=== PATIENT | male | born 1960 | race American Indian/Alaskan Native ===

== ENCOUNTER 2019-11-22 12:11 | Emergency (ER) | payer MEDICAID ==
[2019-11-22] MEDS ORDERED: SODIUM CHLORIDE 0.9% IRR 500 ML BOTTLE IR ONE (12:25)
[2019-11-22] MEDS ORDERED: LIDOCAINE 2%/EPINEPHRINE 1:200,000 VIAL (20 ML) INFILTRATI ONE (12:25)
--- NOTE | 2019-11-22 12:27 | Emergency Department Report ---
Chief Complaint: Wound/Laceration Stated Complaint: CUT LEFT HAND Time Seen by Provider: 11/22/19 12:27 - HPI History of Present Illness: 59 y/o male right hand dominant, utd w td p/w accidental left hand laceration at 1030 am, s/p cutting frozen sausage xr hand wash and irrigate wound laceration repair ok for minor care/fast track MSE screening note: Focused history and physical exam performed. Due to findings the following was ordered: ED Disposition for MSE Condition: Stable
[2019-11-22 12:28] VITALS: BP 166/81
--- NOTE | 2019-11-22 13:18 | XRay Report ---
LEFT HAND 3 VIEWS INDICATION: left hand laceration. COMPARISON: No relevant prior imaging study available. FINDINGS: There is no acute skeletal abnormality. Bandaging is noted along the thenar region. No significant so ft tissue gas or radiodense foreign bodies. IMPRESSION: 1. No acute findings. Signer Name: Ed Bloom MD Signed: 11/22/2019 1:13 PM Workstation Name: [id number]
[2019-11-22] MEDS ORDERED: POVIDONE-IODINE OINTMENT 28.35 GM TP SCH (14:00)
[2019-11-22] MEDS ORDERED: TETANUS,DIPH,PERTUSS(ACELL) VACCINE 0.5 ML SYRINGE IM ONE (15:06)
--- NOTE | 2019-11-22 15:31 | Emergency Department Report ---
ED Laceration HPI - HPI Chief Complaint: Wound/Laceration Stated Complaint: CUT LEFT HAND Time Seen by Provider: 11/22/19 12:27 Occurred When: Today Location: Upper Extremity Severity: mild Tetanus Status: Not up to Date Laceration Symptoms: Yes Pain, No Foreign Body Sensation, No Numbness, No Weakness Other History: This is a 59-year-old male nontoxic, well nourished in appearance, no acute signs of distress presents to the ED with c/o of left hand laceration that occurred earlier today. They stated that he was cooking and cut self by a knife. Patient denies decreased sensation or range of motion. Patient stated bleeding is under control. Denies any numbness, tingling, fever, chills, nausea, vomiting, chest pain, shortness of breath, headache or stiff neck. Patient denies any allergies to significant past medical history. Patient is that he is not up-to-date with tetanus. ED Review of Systems ROS: Stated complaint: CUT LEFT HAND Other details as noted in HPI Constitutional: denies: chills, fever Eyes: denies: eye pain, eye discharge, vision change ENT: denies: ear pain, throat pain Respiratory: denies: cough, shortness of breath, wheezing Cardiovascular: denies: chest pain, palpitations Endocrine: no symptoms reported Gastrointestinal: denies: abdominal pain, nausea, diarrhea Genitourinary: denies: urgency, dysuria Musculoskeletal: denies: back pain, joint swelling, arthralgia Skin: denies: rash, lesions Neurological: denies: headache, weakness, paresthesias Psychiatric: denies: anxiety, depression Hematological/Lymphatic: denies: easy bleeding, easy bruising ED Past Medical Hx - Past Medical History Previous Medical History?: Yes Additional medical history: chronic back pain - Surgical History Past Surgical History?: Yes Hx Appendectomy: Yes - Social History Smoking Status: Current Some Day Smoker Substance Use Type: None - Medications Home Medications: Home Medications Medication Instructions Recorded Confirmed Last Taken Type Acetaminophen/Codeine [Tylenol 1 tab PO Q6H PRN #12 tab 11/22/19 Unknown Rx /Codeine # 3 tab] Sulfamethoxazole/Trimethoprim 1 each PO BID #14 tablet 11/22/19 Unknown Rx [Bactrim DS TAB] Laceration Physical Exam - Exam General: Vital signs noted. No distress. Alert and acting appropriately. Wound Length (cm): 4 Laceration Location: Upper Extremity Full Body Front + Back: 1 - lac here Laceration Exam: Yes Normal Distal CMS, No Foreign Body, No Exposed Tendon, Vessel, or Nerve, No Tendon Injury ED Course Vital Signs 11/22/19 12:25 Temperature 98.7 F Pulse Rate 97 H Respiratory 17 Rate Blood Pressure 166/81 O2 Sat by Pulse 95 Oximetry - Reevaluation(s) Reevaluation #1: 11/22/19 15:29 Patient is speaking in full sentences with no signs of distress noted. - Laceration /Wound Repair Left Hand Wound Location: upper extremity (left hand) Wound Length (cm): 4 Wound's Depth, Shape: linear Wound Explored: clean Irrigated w/ Saline (ccs): 40 Betadine Prep?: Yes Volume Anesthetic (ccs): 5 (2% lidocaine plain) Wound Debrided: minimal Wound Repaired With: sutures Suture Size/Type: 4:0, proline Number of Sutures: 6 Layer Closure?: Yes Deep Layer Suture Size/Type: 3:0 (chromic) Number Deep Layer Sutures: 1 Sterile Dressing Applied?: Yes Progress: Under sterile field, I used Betadine to clean the area. I then used 40 mL of normal saline to flush the area. I then used 2% lidocaine plain and injected 6 mL to the wound. I then used 3-0 Vicryl to approximate the deeper dermis with total of 1 stitch placed. I then used a 4-0 Prolene to suture the laceration. Number of stitches 6. I then applied a sterile 4 x 4 with tape. Minimal bleeding noted but is under control. Patient tolerated procedure well with no signs of distress. ED Medical Decision Making - Medical Decision Making This is a 59-year-old male that presents with laceration. Patient is stable and was examined by me. The laceration suturing has been performed and has been performed and patient tolerated well. A sterile dressing has been applied. Patient was educated on proper wound care. Patient is discharged with Bactrim and Tylenol with codeine and was instructed not to operate any machinery while taking Tylenol with codeine due to drowsiness. Patient was instructed to return in 10 days for suture removal. Patient was instructed to refer to Follow-up w ith a primary care doctor in 3-5 days or if symptoms worsen and continue return to emergency room as soon as possible. At time of discharge, the patient does not seem toxic or ill in appearance. No acute signs of distress noted. Patient agrees to discharge treatment plan of care. No further questions noted by the patient. Critical care attestation.: If time is entered above; I have spent that time in minutes in the direct care of this critically ill patient, excluding procedure time. ED Disposition Clinical Impression: Laceration Disposition: DC-01 TO HOME OR SELFCARE Is pt being admited?: No Does the pt Need Aspirin: No Condition: Stable Instructions: Laceration (ED), Suture Care (ED), Acetaminophen/Codeine (By mouth) Additional Instructions: Follow-up with a primary care doctor in 3-5 days or if symptoms worsen and continue return to emergency room as soon as possible. Do not operate any machinery while taking Tylenol with codeine as this may cause drowsiness. Return in 10 days for suture removal. Prescriptions: Sulfamethoxazole/Trimethoprim [Bactrim DS TAB] 1 each PO BID #14 tablet Acetaminophen/Codeine [Tylenol /Codeine # 3 tab] 1 tab PO Q6H PRN #12 tab PRN Reason: Pain , Severe (7-10) Referrals: PRIMARY CAREMD [Referring] - 3-5 Days SHANTANU MCKENNA MD [Staff Physician] - 3-5 Days [facility] [Outside] - 3-5 Days Forms: Work/School Release Form(ED)
[2019-11-22] MEDS ORDERED: NEOMY 3.5 MG/BACIT 400 UNITS/POLY B 5000 UNITS/GM OINT PACKET TP ONE ×2 (15:32→15:43)
== END 2019-11-22 15:44 | disposition home or self-care (01) ==
LOC: ED 12:11
DX: S61.412A Laceration without foreign body of left hand, initial encounter (principal); F17.200 Nicotine dependence, unspecified, uncomplicated; Z90.89 Acquired absence of other organs; W26.0XXA Contact with knife, initial encounter; Y93.89 Activity, other specified; Y92.89 Other specified places as the place of occurrence of the external cause; Y99.8 Other external cause status
CPT/HCPCS: 90471; 90715; A6250

== ENCOUNTER 2019-12-06 13:41 | Emergency (ER) | payer MEDICAID ==
[2019-12-06 14:24] VITALS: BP 109/72
--- NOTE | 2019-12-06 16:34 | Emergency Department Report ---
{null, Suture/Staple Removal - HPI Chief Complaint: Laceration/Recheck/Suture Stated Complaint: REMOVAL OF STITCHES Time Seen by Provider: 12/06/19 16:31 When Sutures or David Placed: 11/22/19 Wound Location: left thumb suture removal ED Review of Systems ROS: Stated complaint: REMOVAL OF STITCHES Other details as noted in HPI Comment: All other systems reviewed and negative ED Past Medical Hx - Past Medical History Previous Medical History?: No Additional medical history: chronic back pain - Surgical History Past Surgical History?: No Hx Appendectomy: Yes - Social History Smoking Status: Current Some Day Smoker Substance Use Type: None - Medications Home Medications: Home Medications Medication Instructions Recorded Confirmed Last Taken Type Acetaminophen/Codeine [Tylenol 1 tab PO Q6H PRN #12 tab 11/22/19 Unknown Rx /Codeine # 3 tab] Sulfamethoxazole/Trimethoprim 1 each PO BID #14 tablet 11/22/19 Unknown Rx [Bactrim DS TAB] Suture Removal Exam - Exam General: Vital signs noted. No distress. Alert and acting appropriately. Wound: No Pathologic Erythema, No Tenderness, No Drainage, No Pus, No Wound Dehiscence Other Systems: All other systems reviewed and are unremarkable. ED Course Vital Signs 12/06/19 14:17 Temperature 98.7 F Pulse Rate 82 Respiratory 16 Rate Blood Pressure 109/72 O2 Sat by Pulse 97 Oximetry ED Recheck MDM - Medical Decision Making pt is a 59 yo male who presents to the ED for suture removal. he had sutures placed on 11/22/2019 for a laceration due to a knife. he denies any pain, fever, chills, drainage, increased warmth, any symptoms. wound appears well healed to the dorsum portion of the left thumb, all sutures removed without difficulty by nursing staff, no signs of infection, clean, dry, intact, no wound dehiscence, pt tolerated well. advised pt to please continue to keep area clean, dry, covered. may wash with soap and water and immediately dry. no hot tub, pool, or soaking in water. follow up with a primary care doctor. return to the emergency room for any new or worsening symptoms Critical care attestation.: If time is entered above; I have spent that time in minutes in the direct care of this critically ill patient, excluding procedure time. ED Disposition Clinical Impression: Visit for suture removal Disposition: TO HOME OR SELFCARE Is pt being admited?: No Does the pt Need Aspirin: No Condition: Stable Instructions: Suture Removal (ED) Additional Instructions: please continue to keep area clean, dry, covered. may wash with soap and water and immediately dry. no hot tub, pool, or soaking in water. follow up with a primary care doctor. return to the emergency room for any new or worsening symptoms. Referrals: SHANTANU MCKENNA MD [Staff Physician] - 3-5 Days [facility] [Outside] - 3-5 Days [facility] [Outside] - 3-5 Days Time of Disposition: 16:33 Print Language: SPANISH }
== END 2019-12-06 16:42 | disposition home or self-care (01) ==
LOC: ED 13:41
DX: S61.012D Laceration without foreign body of left thumb without damage to nail, subsequent encounter (principal); F17.200 Nicotine dependence, unspecified, uncomplicated; G89.29 Other chronic pain; Z48.02 Encounter for removal of sutures; Z90.49 Acquired absence of other specified parts of digestive tract; Z79.899 Other long term (current) drug therapy; X58.XXXD Exposure to other specified factors, subsequent encounter
CPT/HCPCS: 99282

== ENCOUNTER 2020-07-07 09:09 | Emergency (ER) | payer MEDICAID ==
[2020-07-07] MEDS ORDERED: methylPREDNISolone Sod Succinate 125 MG/2 ML INJ IV ONE (11:08)
[2020-07-07] MEDS ORDERED: diphenhydrAMINE 50 MG/ML VIAL IV ONE (11:08)
[2020-07-07] MEDS ORDERED: FAMOTIDINE 20 MG/2 ML INJ IV ONE (11:09)
--- NOTE | 2020-07-07 11:50 | Emergency Department Report ---
ED Allergic Reaction HPI - General Chief complaint: Allergic Reaction Stated complaint: MOUTH PAIN Time Seen by Provider: 07/07/20 11:04 Source: patient Mode of arrival: Ambulatory Limitations: No Limitations - History of Present Illness Initial Comments: Patient is 60 years old male with history of hypertension. Patient presented to the ER complaining of upper lip swelling and left facial swelling. Patient stated the symptoms started after he took tramadol for pain. Patient stated that he was taking blood pressure medicine but the last time he took any of his pill was 7 months ago but because he does not have it. Patient denied any difficulty swallowing or difficulty breathing. Patient vital signs are stable with an oxygen saturation of 100%. MD Complaint: allergic reaction, facial swelling -: Last night Exposure: medication Symptoms: facial swelling, lip swelling. denies: difficulty swallowing, difficulty breathing, orolingual swelling, hoarseness, syncopy, dizziness Severity: moderate Treatment Prior to Arrival: none Previous Allergy History: none - Related Data Previous Rx's Medication Instructions Recorded Last Taken Type Acetaminophen/Codeine [Tylenol 1 tab PO Q6H PRN #12 tab 11/22/19 Unknown Rx /Codeine # 3 tab] Sulfamethoxazole/Trimethoprim 1 each PO BID #14 tablet 11/22/19 Unknown Rx [Bactrim DS TAB] Allergies Allergy/AdvReac Type Severity Reaction Status Date / Time No Known Allergies Allergy Unverified 11/22/19 12:17 ED Review of Systems ROS: Stated complaint: MOUTH PAIN Other details as noted in HPI Comment: All other systems reviewed and negative Constitutional: denies: chills, fever Respiratory: denies: cough, orthopnea, shortness of breath, SOB with exertion, SOB at rest, wheezing Cardiovascular: denies: chest pain, palpitations Gastrointestinal: denies: abdominal pain, nausea, vomiting Musculoskeletal: denies: back pain Neurological: denies: headache, weakness, numbness, paresthesias, confusion ED Past Medical Hx - Past Medical History Previous Medical History?: Yes Hx Hypertension: Yes Hx Congestive Heart Failure: Yes Additional medical history: chronic back pain - Surgical History Past Surgical History?: Yes Hx Appendectomy: Yes - Social History Smoking Status: Current Some Day Smoker Substance Use Type: None - Medications Home Medications: Home Medications Medication Instructions Recorded Confirmed Last Taken Type Acetaminophen/Codeine [Tylenol 1 tab PO Q6H PRN #12 tab 11/22/19 Unknown Rx /Codeine # 3 tab] Sulfamethoxazole/Trimethoprim 1 each PO BID #14 tablet 11/22/19 Unknown Rx [Bactrim DS TAB] ED Physical Exam - General Limitations: No Limitations General appearance: alert, in no apparent distress - Head Head exam: Present: atraumatic, normocephalic, normal inspection - ENT ENT exam: Present: other (Upper lip swelling, left cheek swelling. No tongue swelling noticed. Uvula is seen normal and is in the midline.) - Neck Neck exam: Present: normal inspection, full ROM. Absent: tenderness, meningismus - Respiratory Respiratory exam: Present: normal lung sounds bilaterally. Absent: respiratory distress, wheezes, rales, rhonchi, stridor, chest wall tenderness, accessory muscle use, decreased breath sounds, prolonged expiratory - Cardiovascular Cardiovascular Exam: Present: regular rate, normal rhythm, normal heart sounds - GI/Abdominal GI/Abdominal exam: Present: soft, normal bowel sounds. Absent: distended, te nderness, guarding, rebound, rigid, organomegaly, mass, bruit, pulsatile mass, hernia - Extremities Exam Extremities exam: Present: normal inspection, full ROM, normal capillary refill. Absent: pedal edema, calf tenderness - Back Exam Back exam: Present: normal inspection, full ROM. Absent: CVA tenderness (R), CVA tenderness (L) - Neurological Exam Neurological exam: Present: alert, oriented X3, CN II-XII intact, normal gait, reflexes normal. Absent: motor sensory deficit - Psychiatric Psychiatric exam: Present: normal mood - Skin Skin exam: Present: warm, intact, normal color ED Course Vital Signs 07/07/20 07/07/20 07/07/20 09:16 09:33 09:46 Temperature 97.8 F Pulse Rate 101 H 80 Respiratory 16 19 Rate Blood Pressure 135/66 123/76 O2 Sat by Pulse 97 99 98 Oximetry 07/07/20 07/07/20 07/07/20 10:00 10:16 10:30 Temperature Pulse Rate 76 72 73 Respiratory 22 23 21 Rate Blood Pressure 120/73 120/73 123/76 O2 Sat by Pulse 97 97 97 Oximetry 07/07/20 07/07/20 07/07/20 10:46 11:00 11:32 Temperature Pulse Rate 68 72 62 Respiratory 21 20 19 Rate Blood Pressure 116/68 126/68 136/76 O2 Sat by Pulse 99 98 99 Oximetry 07/07/20 07/07/20 07/07/20 12:00 12:30 13:00 Temperature Pulse Rate 81 56 L 56 L Respiratory 25 H 21 22 Rate Blood Pressure 136/76 133/88 112/69 O2 Sat by Pulse 100 99 99 Oximetry 07/07/20 07/07/20 13:30 14:30 Temperature Pulse Rate 60 63 Respiratory 24 22 Rate Blood Pressure 110/67 112/68 O2 Sat by Pulse 99 99 Oximetry - Reevaluation(s) Reevaluation #1: 07/07/20 13:42 Patient evaluated by me multiple times. Patient remained stable with stable vital signs and oxygen saturation of 100% on room air. ED Medical Decision Making - Lab Data Result diagrams: 07/07/20 11:23 07/07/20 11:23 - Medical Decision Making Patient is 60 years old male with history of hypertension. Patient presented to the ER complaining of upper lip swelling and left facial swelling. Patient stated the symptoms started after he took tramadol for pain. Patient stated t hat he was taking blood pressure medicine but the last time he took any of his pill was 7 months ago but because he does not have it. Patient denied any difficulty swallowing or difficulty breathing. Patient vital signs are stable with an oxygen saturation of 100%. Patient remained stable in the emergency room with a stable vital sign. Oxygen saturation remained 100% on room air. Patient still denying any shortness of breath, difficulty breathing or difficulty swallowing. Patient has been observed in the emergency room for more than 6 hours. Labs reviewed and is unremarkable. Patient given prescription for prednisone, Benadryl and Pepcid and advised to follow-up with his primary doctor in the next 2 to 3 days and to return to the ER if he develop any new symptoms. Critical care attestation.: If time is entered above; I have spent that time in minutes in the direct care of this critically ill patient, excluding procedure time. ED Disposition Clinical Impression: Acute allergic reaction Disposition: DC- TO HOME OR SELFCARE Is pt being admited?: No Condition: Stable Instructions: Angioedema (ED) Referrals: PRIMARY CARE, [Primary Care Provider] - 3-5 Days
[2020-07-07 12:15] LABS: Basophils # (Auto) 0.1 K/mm3 (0.0-0.1); Eosinophils # (Auto) 0.4 K/mm3 (0.0-0.4); Eosinophils % (Auto) 5.7 % (0.0-4.3); Hemoglobin 14.4 gm/dl (11.8-15.2); Lymphocytes # (Auto) 2.2 K/mm3 (1.2-5.4); Lymphocytes % (Auto) 32.2 % (13.4-35.0); Monocytes # (Auto) 0.5 K/mm3 (0.0-0.8); Monocytes % (Auto) 6.6 % (0.0-7.3)
[2020-07-07 12:30] LABS: Hematocrit 43.3 % (35.5-45.6); Mean Corpuscular HGB Conc 34 % (32-34); Mean Corpuscular Volume 96 fl (84-94); Platelet Count 389 K/mm3 (140-440); Red Cell Distribution Width 14.8 % (13.2-15.2)
[2020-07-07 12:39] LABS: Alanine Aminotransferase 14 units/L (7-56); Albumin 4.3 g/dL (3.9-5); BUN/Creatinine Ratio 12; Blood Urea Nitrogen 11 mg/dL (9-20); Calcium 9.2 mg/dL (8.4-10.2); Hemolysis Index 7
[2020-07-07 16:50] VITALS: BP 120/73
== END 2020-07-07 16:50 | disposition home or self-care (01) ==
LOC: ED 09:09
DX: T78.40XA Allergy, unspecified, initial encounter (principal); I11.0 Hypertensive heart disease with heart failure; I50.9 Heart failure, unspecified; F17.200 Nicotine dependence, unspecified, uncomplicated; Z90.49 Acquired absence of other specified parts of digestive tract; Z79.899 Other long term (current) drug therapy; X58.XXXA Exposure to other specified factors, initial encounter
CPT/HCPCS: 36415; 80053; 85025; 96374; 96375; 99283; J1200; J2930

== ENCOUNTER 2020-11-12 08:12 | Emergency (ER) | payer MEDICAID ==
[2020-11-12 08:30] VITALS: BP 120/73
[2020-11-12] MEDS ORDERED: FLUORESCEIN 1 MG STRIP OP ONE (08:32)
[2020-11-12] MEDS ORDERED: BALANCED SALT IRRIG (BSS) OPHTH SOLN 15 ML ONE (08:32)
[2020-11-12] MEDS ORDERED: TETRACAINE 0.5% OPHTH SOLN 4ML ONE (08:32)
--- NOTE | 2020-11-12 09:56 | Emergency Department Report ---
ED Eye Problem HPI - General Chief complaint: Eye Problems Stated complaint: INSECT BITE Time Seen by Provider: 11/12/20 08:46 Source: patient Mode of arrival: Ambulatory Limitations: No Limitations - History of Present Illness Initial comments: This is a 60-year-old male nontoxic, well nourished in appearance, no acute signs of distress presents to the ED with c/o of right eye redness, itching and upper eyelid swelling x1 day. Stated he felt something bite his eyelid. Patient denies any trauma to the eye. Denies any foreign body sensation or yovany aters. Patient denies any eye pain. Patient denies any visual changes or decreased vision. Patient denies any fever, chills, nausea, vomiting, chest pain, breath, headache, stiff neck numbness or tingling. Patient stated allergies to amoxicillin and latex. MD chief complaint: eye redness -: days(s) Onset Description: sudden Location: right eye If Injury: none Severity scale (0 -10): 0 Associated Symptoms: none. denies: headache, neck pain, nausea/vomiting, cough, rhinorrhea, fever, shortness of breath Treatments Prior to Arrival: none - Related Data Previous Rx's Medication Instructions Recorded Last Taken Type Acetaminophen/Codeine [Tylenol 1 tab PO Q6H PRN #12 tab 11/22/19 Unknown Rx /Codeine # 3 tab] Sulfamethoxazole/Trimethoprim 1 each PO BID #14 tablet 11/22/19 Unknown Rx [Bactrim DS TAB] Famotidine [Pepcid] 40 mg PO QHS #5 tablet 07/07/20 Unknown Rx Prednisone [predniSONE 10 mg 10 mg PO .TAPER #1 tab.ds.pk 07/07/20 Unknown Rx (6-Day Pack, 21 Tabs)] diphenhydrAMINE [Benadryl CAP] 25 mg PO Q8HR PRN #20 capsule 07/07/20 Unknown Rx Azithromycin [Zithromax Z-DANYA] 250 mg PO DAILY #6 tablet 11/12/20 Unknown Rx Erythromycin [Erythromycin Ophth 10 applic OD 4XD 7 Days #1 tube 11/12/20 Unknown Rx Oint] Allergies Allergy/AdvReac Type Severity Reaction Status Date / Time No Known Allergies Allergy Unverified 11/22/19 12:17 ED Review of Systems ROS: Stated complaint: INSECT BITE Other details as noted in HPI Comment: All other systems reviewed and negative Constitutional: denies: chills, fever Eyes: denies: eye pain, eye discharge, vision change ENT: denies: ear pain, throat pain Respiratory: denies: cough, shortness of breath, wheezing Cardiovascular: denies: chest pain, palpitations Endocrine: no symptoms reported Gastrointestinal: denies: abdominal pain, nausea, diarrhea Genitourinary: denies: urgency, dysuria Musculoskeletal: denies: back pain, joint swelling, arthralgia Skin: denies: rash, lesions Neurological: denies: headache, weakness, paresthesias Psychiatric: denies: anxiety, depression Hematological/Lymphatic: denies: easy bleeding, easy bruising ED Past Medical Hx - Past Medical History Previous Medical History?: Yes Hx Hypertension: Yes Hx Congestive Heart Failure: Yes Additional medical history: chronic back pain - Surgical History Past Surgical History?: Yes Hx Appendectomy: Yes - Social History Smoking Status: Current Some Day Smoker Substance Use Type: None - Medications Home Medications: Home Medications Medication Instructions Recorded Confirmed Last Taken Type Acetaminophen/Codeine [Tylenol 1 tab PO Q6H PRN #12 tab 11/22/19 Unknown Rx /Codeine # 3 tab] Sulfamethoxazole/Trimethoprim 1 each PO BID #14 tablet 11/22/19 Unknown Rx [Bactrim DS TAB] Famotidine [Pepcid] 40 mg PO QHS #5 tablet 07/07/20 Unknown Rx Prednisone [predniSONE 10 mg 10 mg PO .TAPER #1 tab.ds.pk 07/07/20 Unknown Rx (6-Day Pack, 21 Tabs)] diphenhydrAMINE [Benadryl CAP] 25 mg PO Q8HR PRN #20 capsule 07/07/20 Unknown Rx Azithromycin [Zithromax Z-DANYA] 250 mg PO DAILY #6 tablet 11/12/20 Unknown Rx Erythromycin [Erythromycin Ophth 10 applic OD 4XD 7 Days #1 tube 11/12/20 Unknown Rx Oint] ED Physical Exam - General Limitations: No Limitations General appearance: alert, in no apparent distress - Head Head exam: Present: atraumatic, normocephalic - Eye Eye exam: Present: normal appearance, PERRL, EOMI, other (right upper eyelid with some swelling. No cellulitis. ). Absent: scleral icterus, conjunctival injection, nystagmus, periorbital swelling, periorbital tenderness Pupils: Present: normal accommodation. Absent: irregular, unequal - Neck Neck exam: Present: normal inspection, full ROM - Respiratory Respiratory exam: Absent: respiratory distress - Cardiovascular Cardiovascular Exam: Present: regular rate - Extremities Exam Extremities exam: Present: full ROM - Back Exam Back exam: Present: full ROM - Neurological Exam Neurological exam: Present: alert, oriented X3 - Psychiatric Psychiatric exam: Present: normal affect, normal mood - Skin Skin exam: Present: warm, dry, intact, normal color. Absent: rash - Other Other exam information: Under León lamp, I used fluorescein and tetracaine to examine cornea for corneal abrasion or foreign body, negative for coronary abrasion or foreign body noted upon exam. ED Course Vital Signs 11/12/20 08:27 Temperature 98.0 F Pulse Rate 82 Respiratory 18 Rate Blood Pressure 120/73 O2 Sat by Pulse 99 Oximetry - Reevaluation(s) Reevaluation #1: 11/12/20 09:51 Patient is speaking in full sentences with no signs of distress noted. ED Medical Decision Making - Medical Decision Making Patient is stable and was examined by me. Exam is unremarkable. Vital signs are stable. Patient be treated with patient was instructed to follow-up with a [employer] doctor in 3-5 days or if symptoms worsen and continue return to emergency room as soon as possible. At time of discharge, the patient does not seem toxic or ill in appearance. No acute signs of distress noted. Patient agrees to discharge treatment plan of care. No further questions noted by the patient. Critical care attestation.: If time is entered above; I have spent that time in minutes in the direct care of this critically ill patient, excluding procedure time. ED Disposition Clinical Impression: Blepharitis Qualifiers: Blepharitis type: unspecified type Laterality: right Eyelid: upper Qualified Code(s): H01.001 - Unspecified blepharitis right upper eyelid Disposition: DC-01 TO HOME OR SELFCARE Is pt being admited?: No Does the pt Need Aspirin: No Condition: Stable Instructions: Blepharitis Additional Instructions: Follow-up with a [employer] doctor in 3-5 days or if symptoms worsen and continue return to emergency room as soon as possible. Prescriptions: Erythromycin [Erythromycin Ophth Oint] 10 applic OD 4XD 7 Days #1 tube Azithromycin [Zithromax Z-DANYA] 250 mg PO DAILY #6 tablet Referrals: PRIMARY CAREMD [Primary Care Provider] - 3-5 Days FLAKITA REAL MD [Staff Physician] - 3-5 Days Forms: Work/School Release Form(ED) Time of Disposition: 09:57
== END 2020-11-12 10:33 | disposition home or self-care (01) ==
LOC: ED 08:12
DX: H01.001 Unspecified blepharitis right upper eyelid (principal); I11.0 Hypertensive heart disease with heart failure; I50.9 Heart failure, unspecified; F17.200 Nicotine dependence, unspecified, uncomplicated; Z90.49 Acquired absence of other specified parts of digestive tract
CPT/HCPCS: 99281